=== PATIENT | female | born 1970 | race Caucasian/White ===

== ENCOUNTER 2019-09-24 23:04 | Emergency (ER) | payer SELFPAY ==
--- NOTE | 2019-09-24 23:29 | EDM.PDOC ---
ED HPI GENERAL MEDICAL PROBLEM - General Chief Complaint: General Stated Complaint: head laceration Time Seen by Provider: 09/24/19 23:20 Source of Information: Reports: Patient History Limitations: Reports: No Limitations - History of Present Illness INITIAL COMMENTS - FREE TEXT/NARRATIVE: Sahra is a pleasant 49 yo female who presents to the ED with c/o head laceration to posterior scalp. 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 Reports falling 1-2 feet. Denies any LOC, headache, dizziness. No focal neurologic deficit. She reports she couldn't get the bleeding to stop and the [employer] station quality improvement consultant advised her to go to ED. She does not offer any additional complaints. GCS 15. Onset: Today, Sudden Onset Date: 09/24/19 Onset Time: 23:00 Location: Reports: Head Associated Symptoms: Reports: No Other Symptoms. Denies: Confusion, Headaches, Seizure, Syncope, Weakness - Related Data Allergies Allergy/AdvReac Type Severity Reaction Status Date / Time No Known Allergies Allergy Verified 09/24/19 23:05 Home Meds: Home Meds . [No Known Home Meds] 09/24/19 [History] ED ROS GENERAL - Review of Systems Review Of Systems: Comprehensive ROS is negative, except as noted in HPI. ED EXAM, GENERAL - Physical Exam Exam: See Below Exam Limited By: No Limitations General Appearance: Alert, WD/WN, No Apparent Distress Eye Exam: Bilateral Eye: EOMI, Normal Fundi, Normal Inspection, PERRL Ears: Normal External Exam, Normal Canal, Hearing Grossly Normal, Normal TMs Nose: Normal Inspection, Normal Mucosa, No Blood Throat/Mouth: Normal Inspection, Normal Lips, Normal Teeth, Normal Gums, Normal Oropharynx, Normal Voice, No Airway Compromise Head: Other (small abrasion right posterior occipit with ~2" hematoma) Neck: Normal Inspection, Supple, Non-Tender, Full Range of Motion Respiratory/Chest: No Respiratory Distress, Lungs Clear, Normal Breath Sounds, No Accessory Muscle Use, Chest Non-Tender Cardiovascular: Normal Peripheral Pulses, Regular Rate, Rhythm, No Edema, No Gallop, No JVD, No Murmur, No Rub GI/Abdominal: Normal Bowel Sounds, Soft, Non-Tender, No Organomegaly, No Distention, No Abnormal Bruit, No Mass Neurological: Alert, Oriented, CN II-XII Intact, Normal Cognition, Normal Gait, Normal Reflexes, No Motor/Sensory Deficits Psychiatric: Normal Affect, Normal Mood Skin Exam: Other (small abrasion right posterior occipit) Course - Vital Signs Last Recorded V/S: Last Vital Signs Temp 97 F 09/24/19 23:24 Pulse 75 09/24/19 23:24 Resp 18 09/24/19 23:24 BP Pulse Ox 98 09/24/19 23:24 - Re-Assessments/Exams Free Text/Narrative Re-Assessment/Exam: See nurses note for PMH, PSH, SH, and FH. Departure - Departure Time of Disposition: 23:26 Disposition: Home, Self-Care 01 Condition: Good Clinical Impression: Fall (on) (from) other stairs and steps, initial encounter Hematoma of occipital surface of head Qualifiers: Encounter type: initial encounter Qualified Code(s): S00.83XA - Contusion of other part of head, initial encounter Abrasion of scalp Qualifiers: Encounter type: initial encounter Qualified Code(s): S00.01XA - Abrasion of scalp, initial encounter - Discharge Information *PRESCRIPTION DRUG MONITORING PROGRAM REVIEWED*: Not Applicable *COPY OF PRESCRIPTION DRUG MONITORING REPORT IN PATIENT JOSE: Not Applicable Instructions: Facial or Scalp Contusion, [id number] Referrals: PCP,Unknown [Primary Care Provider] - Forms: ED Department Discharge Additional Instructions: - Apply ice to scalp hematoma as needed - May alternate Tylenol or ibuprofen as needed for headache/pain - Keep abrasion clean and dry. It is ok to shower and let water run over it. - Follow up with PCP for any ongoing symptoms or worsening of symptoms - Return to ED for any emergent needs - Problem List & Annotations (1) Abrasion of scalp SNOMED Code(s): 737622614 Code(s): S00.01XA - ABRASION OF SCALP, INITIAL ENCOUNTER Status: Acute Qualifiers: Encounter type: initial encounter Qualified Code(s): S00.01XA - Abrasion of scalp, initial encounter (2) Fall (on) (from) other stairs and steps, initial encounter SNOMED Code(s): 864183810 Code(s): W10.8XXA - FALL (ON) (FROM) OTHER STAIRS AND STEPS, INITIAL ENCOUNTER Status: Acute (3) Hematoma of occipital surface of head SNOMED Code(s): 260975864, 322105304 Code(s): S00.83XA - CONTUSION OF OTHER PART OF HEAD, INITIAL ENCOUNTER Status: Acute Qualifiers: Encounter type: initial encounter Qualified Code(s): S00.83XA - Contusion of other part of head, initial encounter - Assessment/Plan Plan: 49 yo female presented to ED following 1-2 foot fall from semi step onto cement. Was having moderate amount of bleeding from posterior scalp, prompting ED visit. She had no focal neurologic deficit, LOC, dizziness, or headache. Did have hematoma noted as well as small abrasion to right posterior scalp. Area did not require closure as it was superficial. Bleeding was controlled at time of ED presentation. Area was irrigated and cleansed. GCS 15 throughout entire ED stay. Patient is advised to ice affected area the next few days. She is advised to follow up with PCP as needed and return to ED for any change in status or any other emergent needs. Patient discharged from facility in satisfactory conditi on.
== END 2019-09-24 23:30 | disposition home or self-care (01) ==
LOC: CC.ED 23:04
DX: S00.03XA Contusion of scalp, initial encounter (principal); W10.8XXA Fall (on) (from) other stairs and steps, initial encounter
CPT/HCPCS: 99283